=== PATIENT | female | born 1945 | race Caucasian/White ===

== ENCOUNTER → 2024-10-04 | Outpatient (CLI) | payer MEDICARE, SELFPAY ==
[2024-10-04 16:43] LABS: Basophils # (Auto) 0.1 Thou/mm3 (0.0-0.2); Basophils % (Auto) 1 % (0-2.5); Eosinophils # (Auto) 0.2 Thou/mm3 (0.0-0.5); Eosinophils % (Auto) 2 % (0-10); Hematocrit 38.9 % (36.0-46.0); Hemoglobin 12.9 g/dL (12.0-16.0); Immature Granulocytes % (Auto) 0 % (0-0); Immature Granulocytes Auto 0.02 Thou/mm3 (0.00-0.00); Lymphocytes # (Auto) 3.1 Thou/mm3 (1.0-4.8); Lymphocytes % (Auto) 34 % (10-50); Mean Corpuscular HGB Conc 33.2 g/dl (31.0-37.0); Mean Corpuscular Hemoglobin 30.2 pg (25.0-35.0); Mean Corpuscular Volume 91 fL (80-100); Monocytes # (Auto) 0.6 Thou/mm3 (0.0-0.8); Monocytes % (Auto) 7 % (0-12); Neutrophils # (Auto) 5.1 Thou/mm3 (1.8-7.7); Neutrophils % (Auto) 56 % (37-80); Nucleated Red Blood Cell % 0 /100 WBC (0); Platelet Count 290 Thou/mm3 (140-440); RDW Standard Deviation 44.4 fL (36.4-46.3); Red Blood Count 4.27 Miln/mm3 (4.00-5.20)
[2024-10-04 16:58] LABS: Alanine Aminotransferase 17 U/L (10-49); Albumin, Serum 4.5 gm/dL (3.4-4.8); Albumin/Globulin Ratio 1.7 (1.2-2.2); Alkaline Phosphatase 69 U/L (46-116); Anion Gap 6 (7-16); Aspartate Amino Transferase 18 U/L (0-34); BUN/Creatinine Ratio 27 Ratio (12-20); Bilirubin,Total 0.3 mg/dL (0.3-1.2); Blood Urea Nitrogen 24 mg/dL (9-23); Carbon Dioxide 26.8 mMol/L (20.0-31.0); Chloride 104 mMol/L (98-107); Creatinine (Component) 0.9 mg/dL (0.6-1.3); Globulin 2.6 gm/dL (2.3-3.5); Glucose 88 mg/dL (74-106); Osmolality,Calculated 276 (275-295); Potassium 4.2 mMol/L (3.4-5.1); Sodium 137 mMol/L (136-145); Total Protein 7.1 gm/dL (5.7-8.2); eGFR > 60 See Note
[2024-10-04 17:00] LABS: Carcinoembryonic Antigen 0.5 ng/mL (0.0-5.0)
== END | disposition home or self-care (01) ==
LOC: SCTO 15:07
PROVIDERS: PCP Family Medicine; Referring Provider Internal Medicine Hematology & Oncology; Visit Provider Internal Medicine Hematology & Oncology
DX: C50.412 Malignant neoplasm of upper-outer quadrant of left female breast (principal)
CPT/HCPCS: 36415; 80053; 82378; 85025

== ENCOUNTER 2024-10-06 11:16 | Outpatient (RCR) | payer MEDICARE, SELFPAY ==
--- NOTE | 2024-10-08 18:43 | CTCFLWUP_ITS ---
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 Status post left pa rtial mastectomy and sentinel lymph node biopsy (04/20/2020). Status post radiation therapy to the left breast. Benign thyroid nodule (07/01/2022) REASON FOR TODAY?S VISIT: This is office follow-up visit. Ms. Masterson is here at [facility] to review her recent ultrasound of the thyroid results. She recently fell and injured her left ankle. She is ambulating well with some pain in the ankle. O ther than that she seems to be doing well. Denies any cough, chest pain, abdominal pain or leg cramp s. HISTORY OF PRESENT ILLNESS: Isabela Masterson is a 78-year-old ENG speaking female without an y significant past medical history was recently diagnosed with ductal carcinoma in situ of the left b reast as described below. 11/18/2018: Bone density test? 03/31/2018: Left breast stereotactic core biopsy? 10/11/2019: Bilateral digital screening mammograms? 11/29/2019: Left breast unilateral diagnostic mammogram? 03/22/2020: Stereotactic vacuum assisted left breast biopsy with clip placement? 04/20/2020: Left breast partial mastectomy as well as sentinel lymph node biopsy? 05/30/2020?07/10/2020: Patient received 6000 cGy radiation therapy to the left breast. 06/15/2021: Bone density test? 07/01/2022: Ultrasound-guided biopsy of the right thyroid nodule? 11/14/2022: CT scan of the chest without IV contrast 06/24/2023: CT scan of the chest without contrast 08/05/2023: Thyroid ultrasound 12/17/2023: Bone density test 01/28/2024: Thyroid ultrasound 05/26/2024: Ultrasound of the thyroid gland 10/06/2024 Thyroid nodules- multiple nodules . recommended biopsy PAST MEDICAL HISTORY: Denies PAST SURGICAL HISTORY: Sinus surgery and chin implant - 1991 Left breast lumpectomy - 2013 Left breat partial mastectomy with sentinel node biopsy 04/20/2020 MEDICATIONS: 1. biotin - 1,000 mcg 2 tab Daily 2. Calcium 600 with Vitamin D3 - 600 mg-12.5 mcg (500 unit) 2 Capsule Daily 3. echinacea - 400 mg 1 Capsule Daily 4. Excedrin Migraine - 250-250-65 mg 1 tab As directed 5. letrozole - 2.5 mg 1 tab Daily 6. magnesium oxide - 400 mg magnesium 1 tab Daily 7. melatonin - 3 mg 1 tab Every day before sleep 8. multivitamin - 1 tab Daily 9. turmeric - 400 mg 1 Capsule Daily 10. zinc - 1 tab Daily?Palabra Meds? Medications Last Reconciled by Tayler Chaudhry RN on 07/07/2024 ALLERGIES: Sulfa (Sulfonamide Antibiotics); pantoprazole REVIEW OF SYSTEMS:?Clone ROS? Neurological: No headache, seizures or blurring of vision. Gastrointestinal: No nausea, vomiting, diarrhea or constipation. Cardiovascular: No palpitations or angina pains. Respiratory: No cough, chest pain or shortness of breath. PHYSICAL EXAMINATION:?ClonePE? VITAL SIGNS: Temperature?100, B/P?129/70 Weight?172?lbs PAIN: 6 - Severe pain A and O times 4 S1 s2 Bilateral clear to auscultation No abdominal mass Moves all extermities.. ASSESSMENT and Plan : 1. ER positive, OK positive ductal carcinoma in situ of the left breast. Status post left partial ma stectomy along with sentinel lymph node biopsy. S/p adjuvant radiation therapy Tolerating letrozole very well with intermittent night sweats. 2. Osteopenia -bone density test showed decreased mineralization of the hips as documented above. Previous bone density test done in May 2021 showed osteopenia. Citracal 1 tablet p.o. twice daily. The patient does not want to take Fosamax The patient decided not to take Prolia.. 3. The ultrasound of the thyroid gland done on 05/26/2024 showed multiple nodules as documented above. The radiologist is recommending fine-needle aspiration of the large vascular midpole right thyroid nodule measuring 3.2 cm.. 4. Ultrasound-guided biopsy of the right thyroid nodule showed benign tissue. 1. I have reviewed the ultrasound results with the patient. She does not want to get biopsy done as recommended by the radiologist. Referrel to edge inker heels Electronically Signed by: {Object.Sanct_ID*PnP.NameFL@M}, {Object.Sanct_ID*PnP.Suffix@U} D: {Object.Sanct_Date} T: {Object.Sanct_Time} CC: Osvaldo?Kamila,? PCP: Tre Zhang Referring: Tre Zhang This document was completed utilizing speech recognition software. Grammatical errors, random word in sertions, pronoun errors, and incomplete sentences are an occasional consequence of this system due t o software limitations, ambient noise, and hardware issues. Any formal questions or concerns about th e content, text or information contained within the body of this dictation should be directly address ed to the provider for clarification.
== END 2024-10-15 23:59 | disposition home or self-care (01) ==
LOC: SCTC 11:16
PROVIDERS: PCP Family Medicine; Referring Provider Family Medicine; Visit Provider Internal Medicine Hematology & Oncology
DX: D05.12 Intraductal carcinoma in situ of left breast (principal); Z17.0 Estrogen receptor positive status [ER+]; Z17.21 Progesterone receptor positive status; Z79.811 Long term (current) use of aromatase inhibitors; Z90.12 Acquired absence of left breast and nipple; Z92.3 Personal history of irradiation; M85.80 Other specified disorders of bone density and structure, unspecified site
CPT/HCPCS: 99212; G0463

== ENCOUNTER → 2024-10-06 | Outpatient (CLI) | payer MEDICARE, SELFPAY ==
--- NOTE | 2024-10-06 10:00 | XR_ITS ---
Examination: Thyroid sonography complete TECHNIQUE: Multiple high resolution grayscale sonographic images thyroid lobes are carful analysis Exam date and time: October 06, 2024 0958 hours Comparison May 26, 2024 INDICATIONS: Multiple thyroid nodules on ultrasound May 26, 2024 FINDINGS: Right thyroid 5.6 x 2.9 x 3.1 cm Upper pole nodule 12 x 9 x 13 mm Midpole vascular nodule 2.7 x 1.5 x 2.4 cm Lower pole nodule 1.1 x 0.7 x 1.0 cm Left thyroid 6.6 x 3.2 x 2.7 cm Complex cystic mass upper pole 9 x 5 x 8 mm Midpole nodule 16 x 9 x 13 mm Lower pole vascular nodule 22 x 23 x 24 mm IMPRESSION: Multiple bilateral thyroid nodules Recommend ultrasound-guided fine-needle aspiration of mid pole right thyroid nodule 27 x 24 mm and lower pole left thyroid nodule 23 x 24 mm
== END | disposition home or self-care (01) ==
LOC: CDIM 09:36
PROVIDERS: PCP Family Medicine; Referring Provider Internal Medicine Hematology & Oncology; Visit Provider Internal Medicine Hematology & Oncology
DX: E04.2 Nontoxic multinodular goiter (principal); C50.412 Malignant neoplasm of upper-outer quadrant of left female breast
CPT/HCPCS: 76536

== ENCOUNTER → 2024-12-28 | Outpatient (CLI) | payer MEDICARE, SELFPAY ==
--- NOTE | 2024-12-28 09:45 | XR_ITS ---
Examination: Diagnostic digital mammography, bilateral Computer aided detection 3-D breast Tomosynthesis, bilateral Date and time of exam: December 28, 2024 0924 hours Compared to mammograms dating to February 13, 2015 INDICATIONS: Personal history left breast cancer Technique: Nonmagnified MLO, CC views of the breasts to been obtained, reconstructed from 3-D Tomosynthesis images. R2 computer aided detection program utilized for evaluation of suspicious masses and/or abnormal calcifications. 3-D Tomosynthesis images obtained. Findings: The breasts are heterogeneously dense, which may obscure small masses Stable architectural distortion outer left breast with skin thickening The right breast architecture is nodular Impression: BI-RADS Category 0: Incomplete: Need additional imaging evaluation Stable scar formation left breast Right breast architecture is nodular, recommend bilateral baseline breast sonography follow-up.
== END | disposition home or self-care (01) ==
LOC: CDIM 09:07
PROVIDERS: Referring Provider Internal Medicine Hematology & Oncology; Visit Provider Internal Medicine Hematology & Oncology
DX: N64.89 Other specified disorders of breast (principal); C50.412 Malignant neoplasm of upper-outer quadrant of left female breast
CPT/HCPCS: 77062; 77066; G0279

== ENCOUNTER → 2025-01-18 | Outpatient (CLI) | payer MEDICARE, SELFPAY ==
--- NOTE | 2025-01-18 10:30 | XR_ITS ---
Examination: Breast ultrasound complete, bilateral Date and time of exam: January 18, 2025 1032 hours INDICATIONS: Mammogram December 28, 2024 nodular breast architecture, history left breast lumpectomy 2019 Technique: Real-time grayscale ultrasonographic imaging bilateral breasts, including all 4 quadrants as well as nipple retroareolar and axillary regions. Findings: Sonographic images right and left breast demonstrated no cystic or solid masses IMPRESSION: BI-RADS category 1: Negative study
== END | disposition home or self-care (01) ==
LOC: CDIM 10:17
PROVIDERS: PCP Family Medicine; Referring Provider Internal Medicine Hematology & Oncology; Visit Provider Internal Medicine Hematology & Oncology
DX: C50.412 Malignant neoplasm of upper-outer quadrant of left female breast (principal)
CPT/HCPCS: 76641

== ENCOUNTER → 2025-03-29 | Outpatient (CLI) | payer MEDICARE, SELFPAY ==
[2025-03-29 11:59] LABS: Basophils # (Auto) 0.1 Thou/mm3 (0.0-0.2); Basophils % (Auto) 1 % (0-2.5); Eosinophils # (Auto) 0.2 Thou/mm3 (0.0-0.5); Eosinophils % (Auto) 2 % (0-10); Hematocrit 38.7 % (36.0-46.0); Hemoglobin 12.5 g/dL (12.0-16.0); Immature Granulocytes % (Auto) 0 % (0-0); Immature Granulocytes Auto 0.02 Thou/mm3 (0.00-0.00); Lymphocytes # (Auto) 2.1 Thou/mm3 (1.0-4.8); Lymphocytes % (Auto) 26 % (10-50); Mean Corpuscular HGB Conc 32.3 g/dl (31.0-37.0); Mean Corpuscular Hemoglobin 30.2 pg (25.0-35.0); Mean Corpuscular Volume 94 fL (80-100); Monocytes # (Auto) 0.5 Thou/mm3 (0.0-0.8); Monocytes % (Auto) 7 % (0-12); Neutrophils # (Auto) 5.1 Thou/mm3 (1.8-7.7); Neutrophils % (Auto) 64 % (37-80); Nucleated Red Blood Cell % 0 /100 WBC (0); Platelet Count 268 Thou/mm3 (140-440); RDW Standard Deviation 47.3 fL (36.4-46.3); Red Blood Count 4.14 Miln/mm3 (4.00-5.20)
[2025-03-29 12:09] LABS: Glucose Estimated Average 114 mg/dL (80-131); Hemoglobin A1C 5.6 % Hgb (4.8-6.0)
[2025-03-29 12:23] LABS: T4 (Thyroxine) 7.4 mcg/dL (4.5-10.9)
[2025-03-29 12:24] LABS: Carcinoembryonic Antigen 0.6 ng/mL (0.0-5.0)
[2025-03-29 12:25] LABS: Alanine Aminotransferase 12 U/L (10-49); Albumin, Serum 4.2 gm/dL (3.4-4.8); Albumin/Globulin Ratio 1.6 (1.2-2.2); Alkaline Phosphatase 64 U/L (46-116); Anion Gap 8 (7-16); Aspartate Amino Transferase 14 U/L (0-34); BUN/Creatinine Ratio 20 Ratio (12-20); Bilirubin,Total 0.4 mg/dL (0.3-1.2); Blood Urea Nitrogen 18 mg/dL (9-23); Calcium 9.2 mg/dL (8.3-10.6); Calcium (Corrected) 9.2 mg/dL (8.5-10.1); Carbon Dioxide 28.8 mMol/L (20.0-31.0); Cardiac Risk Estimate 4.1 RATIO (3.7-5.6); Chloride 105 mMol/L (98-107); Cholesterol 182 mg/dL (132-200); Creatinine (Component) 0.9 mg/dL (0.6-1.3); Free T4 (Free Thyroxine) 1.07 ng/dL (0.89-1.76); Globulin 2.7 gm/dL (2.3-3.5); Glucose 95 mg/dL (74-106); HDL Cholesterol 44 mg/dL (40-60); LDL Cholesterol,Calculated 113 mg/dL (0-130); Osmolality,Calculated 285 (275-295); Potassium 4.3 mMol/L (3.4-5.1); Sodium 142 mMol/L (136-145); Thyroid Stimulating Hormone 0.44 uIU/mL (0.55-4.78); Total Protein 6.9 gm/dL (5.7-8.2); Triglycerides 125 mg/dL (30-150); eGFR > 60 See Note
== END | disposition home or self-care (01) ==
LOC: SCTO 11:17
PROVIDERS: PCP Nurse Practitioner Family; Referring Provider Internal Medicine Hematology & Oncology; Visit Provider Internal Medicine Hematology & Oncology
DX: C50.412 Malignant neoplasm of upper-outer quadrant of left female breast (principal); E04.1 Nontoxic single thyroid nodule; R53.83 Other fatigue; Z82.49 Family history of ischemic heart disease and other diseases of the circulatory system
CPT/HCPCS: 36415; 80053; 80061; 82378; 83036; 84436; 84439; 84443; 85025

== ENCOUNTER 2025-04-04 14:35 | Outpatient (RCR) | payer MEDICARE, SELFPAY ==
--- NOTE | 2025-04-12 00:31 | CTCFLWUP_ITS ---
Patient: ISABELA MASTERSON : 1945 Page 8 of 8 FOLLOW UP NOTE DATE OF SERVICE: 04/05/2025 NAME: ISABELA MASTERSON ACCOUNT: [id number] : 1945 AGE: 79 INTERVAL HISTORY: Subjective: Chief Complaint Follow-up for stage 0 cancer treatment History of Present Illness Geremias Mar, a 79-year-old female with a history of stage 0 breast cancer in 2019, presents for follow-up. She reports being generally active but has recently experienced some limitations due to a torn tendon in her instep, which has slowed her down to walking. The patient is currently in her fourth year of hormone blocking therapy for breast cancer treatment. She mentions experiencing significant hair loss while on the hormone blockers, though it has since grown back very fine. She denies taking any medications at present. Isabela reports feeling cold in the examination room, which may be related to a potential thyroid issue that was recently discovered through blood tests. She states she was supposed to receive paperwork to see a thyroid specialist but never received it and has not yet consulted with one. The patient confirms adherence to her cancer treatment regimen, approaching the five-year giselle of hormone blocking therapy. She also mentions having completed a bone density scan in 2020 and a breast ultrasound in January, which she reports as negative. Medications and Supplements - Hormone blockers - Discontinued after 4 years of use - Caused hair loss - Calcium - Not taking - Vitamin D - Not taking Review of Systems General: Positive for feeling cold. HEENT: Positive for fine hair. Musculoskeletal: Positive for torn tendon in instep, slowed walking. Objective: Physical Examination General: Patient appears to be in good condition for stated age of 79. HEENT: Hair is present, described as very fine. Patient reports having thick hair previously. Laboratory, Imaging, and Diagnostic Test Results - Breast ultrasound (January 2025): Negative study. Sonographic images of the right and left breast were negative. 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 Status post left partial mastectomy and sentinel lymph node biopsy (04/20/2020). Status post radiation therapy to the left breast. Benign thyroid nodule (07/01/2022) REASON FOR TODAY?S VISIT: This is office follow-up visit. Ms. Masterson is here at [facility] to review her recent ultrasound of the thyroid results. She recently fell and injured her left ankle. She is ambulating well with some pain in the ankle. Other than that she seems to be doing well. Denies any cough, chest pain, abdominal pain or leg cramps. Malignant neoplasm of upper-outer quadrant of left female breast [ICD10] C50.412 DATE OF DIAGNOSIS: STAGE/TNM: TREATMENT HISTORY: Care?Plan Start?Date Cycle Day Intent PROLia?60mg?every?6?months 09/10/2022 1 180 Palliative HISTORY OF PRESENT ILLNESS: Isabela Masterson is a 79-year-old ENG speaking female without any significant past medical history was recently diagnosed with ductal carcinoma in situ of the left breast as described below. 11/18/2018: Bone density test? 03/31/2018: Left breast stereotactic core biopsy? 10/11/2019: Bilateral digital screening mammograms? 11/29/2019: Left breast unilateral diagnostic mammogram? 03/22/2020: Stereotactic vacuum assisted left breast biopsy with clip placement? 04/20/2020: Left breast partial mastectomy as well as sentinel lymph node biopsy? 05/30/2020?07/10/2020: Patient received 6000 cGy radiation therapy to the left breast. 06/15/2021: Bone density test? 07/01/2022: Ultrasound-guided biopsy of the right thyroid nodule? 11/14/2022: CT scan of the chest without IV contrast 06/24/2023: CT scan of the chest without contrast 08/05/2023: Thyroid ultrasound 12/17/2023: Bone density test 01/28/2024: Thyroid ultrasound 05/26/2024: Ultrasound of the thyroid gland 10/06/2024 Thyroid nodules- multiple nodules . 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 biotin - 1,000 mcg 2 tab Daily 2. Calcium 600 with Vitamin D3 - 600 mg-12.5 mcg (500 unit) 2 Capsule Daily 3. echinacea - 400 mg 1 Capsule Daily 4. Excedrin Migraine - 250-250-65 mg 1 tab As directed 5. magnesium oxide - 400 mg magnesium 1 tab Daily 6. melatonin - 3 mg 1 tab Every day before sleep 7. multivitamin - 1 tab Daily 8. turmeric - 400 mg 1 Capsule Daily 9. zinc - 1 tab Daily Medications Last Reconciled by Clementina Gagnon MA on 04/05/2025 ALLERGIES: Sulfa (Sulfonamide Antibiotics); pantoprazole REVIEW OF SYSTEMS: A complete 14-point review of systems was performed and is negative except as noted in interval history. PHYSICAL EXAMINATION: VITAL SIGNS: Temperature?98.2, B/P?147/72, Oxygen?Saturation?97% PAIN: 0 - No pain ECOG Performance Status: 1 - Symptomatic; ambulatory; restricted in strenuous activity GENERAL APPEARANCE: Appears well, in no apparent distress, appropriately interactive. HEENT: Normocephalic, no temporal wasting, normal conjunctiva, no scleral icterus, normal hearing, lips without lesions, neck normal range of motion. CARDIOVASCULAR: Not assessed. PULMONARY: Normal respiratory effort, no respiratory distress or use of accessory muscles, speaking in full sentences, no tachypnea. EXTREMITIES: No pedal edema or cyanosis. SKIN: Normal skin appearance. NEUROLOGIC: Alert and oriented x4. PSHYCHIATRIC: Appropriate affect, mood normal, behavior normal, intact thought and speech. LABORATORY DATA: I have personally reviewed and interpreted each of the patient?s relevant lab tests, abnormal findings are below: Date 10/04/24 03/29/25 ??WHITE?BLOOD?COUNT?(Thou/mm3) 9.0 8.0 ??RED?BLOOD?COUNT?(Miln/mm3) 4.27 4.14 ??HEMOGLOBIN?(gm/dl) 12.9 12.5 ??HEMATOCRIT?(%) 38.9 38.7 ??PLATELET?COUNT?(Thou/mm3) 290 268 ??NEUTROPHILS?%,?AUTO?(%) 56 64 ??LYMPH?%,?AUTO?(%) 34 26 ??NEUTROPHILS,?AUTO?(Thou/mm3) 5.1 5.1 ??GLUCOSE,RANDOM?(mg/dL) ? 95 ??BLOOD?UREA?NITROGEN?(mg/dL) ? 18 ??CREATININE?(mg/dL) ? 0.90 ??SODIUM?(mmol/L) ? 142 ??POTASSIUM?(mmol/L) ? 4.3 ??CHLORIDE?(mmol/L) ? 105 ??CrCl?(CandG)?(ml/min) ? 62.43 ??AST/SGOT?(Unit/L) ? 14 ??ALT/SGPT?(Unit/L) ? 12 ??ALKALINE?PHOSPHATASE?(Unit/L) ? 64 ??BILIRUBIN,?TOTAL?(mg/dL) ? 0.4 ??PROTEIN?TOTAL?(gm/dl) ? 6.9 ??ALBUMIN,?SERUM?(gm/dl) ? 4.2 ??GLOBULIN?(gm/dl) ? 2.7 ??ALBUMIN/GLOBULIN?RATIO ? 1.6 ??CALCIUM,?SERUM?(mg/dL) ? 9.2 ??CALCIUM?SERUM?(CORRECTED)?(mg/dL) ? 9.2 ??CEA?(O*)?(ng/ml) ? 0.6 ASSESSMENT/PLAN: Assessment and Plan: Geremias Mar, a 79-year-old female with a history of stage 0 breast cancer in 2019, presents for follow-up of hormone blocking therapy and management of thyroid issues. Breast Cancer, Stage 0 (2019) Assessment: Patient is nearing completion of 5 years of hormone blocking therapy for stage 0 breast cancer diagnosed in 2019. She has completed approximately 4 years of treatment. Recent breast imaging studies, including sonographic images of both breasts performed in January, were negative. Next mammogram is scheduled for December of the following year. Plan: - Continue hormone blocking therapy until 5-year giselle is reached - Mammogram scheduled for December next year - Discontinue hormone blocking therapy after completion of 5 years Thyroid Dysfunction Assessment: Recent blood tests suggest thyroid dysfunction, likely hyperthyroidism based on clinical presentation including body habitus and eye findings. A referral to an cardiac technologist was previously ordered but not received by the patient. Plan: - Referral to cardiac technologist Dr. Maribell Tellez for thyroid evaluation - Patient advised to contact the referred specialist's office directly, as no authorization is required - Follow up on referral process with learning and development officer due to patient not receiving referral information Bone Health Assessment: Last bone density scan was performed in 2020 with good results. Patient is due for a repeat scan as these are typically performed every 2 years. Plan: - Schedule bone density scan Foot Injury Assessment: Patient reports tearing a tendon in the instep of one foot, which has limited her to walking and slowed her down. Plan: - Continue monitoring foot injury - Encourage activity as tolerated ORDERS: Order # Description [id number] Comprehensive Metabolic Panel - 12 + CBC with Auto Diff + MD Follow Up 6 Month [id number] Thyroid Stimulating Hormone + Assay Triiodothyronine (T3) RETURN TO CLINIC: BILLING AND COMPLIANCE: I reviewed external records from providers outside my specialty as summarized above. I spent a total of 50 minutes on this patient?s care on the day of their visit excluding time spent related to any billed procedures. This time includes time spent with the patient as well as time spent documenting in the medical record, reviewing patients records and tests, obtaining history, placing orders, communicating with other healthcare professionals, counseling the patient, family or caregiver, and/or care coordination for the diagnoses above. Electronically Signed by: {Object.Sanct_ID*PnP.NameFL@M}, {Object.Sanct_ID*PnP.Suffix@U} D: {Object.Sanct_Date} T: {Object.Sanct_Time} CC: Osvaldo?Kamila,? PCP: Desean Cronin Referring: Desean Cronin This document was completed utilizing speech recognition software. Grammatical errors, random word insertions, pronoun errors, and incomplete sentences are an occasional consequence of this system due to software limitations, ambient noise, and hardware issues. Any formal questions or concerns about the content, text or information contained within the body of this dictation should be directly addressed to the provider for clarification.
== END 2025-04-15 23:59 | disposition home or self-care (01) ==
LOC: SCTC 14:35
PROVIDERS: PCP Nurse Practitioner Family; Referring Provider Nurse Practitioner Family; Visit Provider Internal Medicine Hematology & Oncology
DX: C50.412 Malignant neoplasm of upper-outer quadrant of left female breast (principal); E07.9 Disorder of thyroid, unspecified; S96.919D Strain of unspecified muscle and tendon at ankle and foot level, unspecified foot, subsequent encounter; X58.XXXD Exposure to other specified factors, subsequent encounter; Z17.0 Estrogen receptor positive status [ER+]; Z17.21 Progesterone receptor positive status; Z79.890 Hormone replacement therapy
CPT/HCPCS: 99212; G0463

== ENCOUNTER → 2025-04-12 | Outpatient (CLI) | payer MEDICARE, SELFPAY ==
[2025-04-12 11:54] LABS: Folate 16.48 ng/mL (>5.38); Follicle Stimulating Hormone 148.38 mIU/mL (See Note); Vitamin B12 322 pg/mL (211-911); Vitamin D 25 Hydroxy Total 36.9 ng/mL (7.3-40.2)
[2025-04-21 06:57] LABS: Albumin 4.1 g/dL (3.6-5.1); Homocysteine* 17.6 umol/L (< OR = 13.4); Methylmalonic Acid, GC/MS/MS* 737 nmol/L (69-390); Progesterone,LC/MS* <0.1 ng/mL; SHBG 30 nmol/L (14-73); Testosterone, Bioavailable 3.1 ng/dL (0.5-8.8); Testosterone, Free 1.7 pg/mL (0.3-5.0); Testosterone,Total 13 ng/dL (2-45); Thyroglobulin Antibodies* 1 IU/mL (< OR = 1); Thyroid Peroxidase Antibodies* 269 IU/mL (<9); Thyrotropin-Binding Inhib Ig* <1.00 IU/L (< OR = 2.00); Vitamin A (Retinol)* 52 mcg/dL (38-98)
[2025-05-01 07:09] LABS: Estradiol, Ultrasensitive* <4 pg/mL; Vitamin B1 (Thiamine)* 10 nmol/L (8-30)
== END | disposition home or self-care (01) ==
LOC: COPL 10:20
PROVIDERS: PCP Nurse Practitioner Family; Referring Provider Nurse Practitioner Family; Visit Provider Nurse Practitioner Family
DX: E56.9 Vitamin deficiency, unspecified (principal); R53.83 Other fatigue; E89.1 Postprocedural hypoinsulinemia; E05.00 Thyrotoxicosis with diffuse goiter without thyrotoxic crisis or storm
CPT/HCPCS: 36415; 82040; 82306; 82607; 82670; 82746; 83001; 83002; 83090; 83519; 83921; 84144; 84270; 84403; 84425; 84443; 84590; 86376; 86800

== ENCOUNTER → 2025-07-05 | Outpatient (CLI) | payer MEDICARE, SELFPAY ==
[2025-07-05 11:56] LABS: Basophils # (Auto) 0.1 Thou/mm3 (0.0-0.2); Basophils % (Auto) 1 % (0-2.5); Eosinophils # (Auto) 0.2 Thou/mm3 (0.0-0.5); Eosinophils % (Auto) 2 % (0-10); Hematocrit 41.6 % (36.0-46.0); Hemoglobin 13.2 g/dL (12.0-16.0); Immature Granulocytes Auto 0.02 Thou/mm3 (0.00-0.00); Lymphocytes # (Auto) 2.3 Thou/mm3 (1.0-4.8); Lymphocytes % (Auto) 29 % (10-50); Mean Corpuscular HGB Conc 31.7 g/dl (31.0-37.0); Mean Corpuscular Hemoglobin 29.5 pg (25.0-35.0); Mean Corpuscular Volume 93 fL (80-100); Monocytes # (Auto) 0.6 Thou/mm3 (0.0-0.8); Monocytes % (Auto) 7 % (0-12); Neutrophils # (Auto) 4.8 Thou/mm3 (1.8-7.7); Neutrophils % (Auto) 60 % (37-80); Nucleated Red Blood Cell # 0.00 Thou/mm3 (0.00-0.00); Nucleated Red Blood Cell % 0 /100 WBC (0); Platelet Count 338 Thou/mm3 (140-440); RDW Standard Deviation 46.6 fL (36.4-46.3); Red Blood Count 4.47 Miln/mm3 (4.00-5.20); White Blood Count 7.9 Thou/mm3 (3.6-11.0)
[2025-07-05 12:21] LABS: Vitamin D 25 Hydroxy Total 27.2 ng/mL (7.3-40.2)
[2025-07-05 12:26] LABS: Alanine Aminotransferase 22 U/L (10-49); Albumin, Serum 4.6 gm/dL (3.4-4.8); Albumin/Globulin Ratio 1.7 (1.2-2.2); Alkaline Phosphatase 62 U/L (46-116); Anion Gap 11 (7-16); Aspartate Amino Transferase 23 U/L (0-34); BUN/Creatinine Ratio 22 Ratio (12-20); Bilirubin,Total 0.5 mg/dL (0.3-1.2); Blood Urea Nitrogen 22 mg/dL (9-23); Calcium 10.2 mg/dL (8.3-10.6); Calcium (Corrected) 10.2 mg/dL (8.5-10.1); Carbon Dioxide 25.8 mMol/L (20.0-31.0); Cardiac Risk Estimate 3.9 RATIO (3.7-5.6); Chloride 105 mMol/L (98-107); Cholesterol 182 mg/dL (132-200); Creatinine (Component) 1.0 mg/dL (0.6-1.3); Free T3 3.1 pg/mL (2.3-4.2); Free T4 (Free Thyroxine) 1.13 ng/dL (0.89-1.76); Globulin 2.7 gm/dL (2.3-3.5); Glucose 97 mg/dL (74-106); HDL Cholesterol 47 mg/dL (40-60); LDL Cholesterol,Calculated 113 mg/dL (0-130); Osmolality,Calculated 286 (275-295); Potassium 4.2 mMol/L (3.4-5.1); Procalcitonin 0.04 ng/ml (0.0-0.49); Sodium 142 mMol/L (136-145); Thyroid Stimulating Hormone 0.45 uIU/mL (0.55-4.78); Total Protein 7.3 gm/dL (5.7-8.2); Triglycerides 111 mg/dL (30-150); eGFR 57 See Note
[2025-07-15 17:49] LABS: Thyroglobulin Antibodies 2 IU/mL (< OR = 1)
[2025-07-18 07:00] LABS: TSI, Thyroid Stimulating Ig* <89 % baseline (<140); Thyroglobulin 34.7 ng/mL; Thyroid Peroxidase Antibodies* 521 IU/mL (<9); Vitamin D,1,25 (OH)2,Total 45 pg/mL (18-72); Vitamin D2, 1,25 (OH)2 <8 pg/mL; Vitamin D3, 1,25 (OH)2 45 pg/mL
== END | disposition home or self-care (01) ==
LOC: COPL 10:03
PROVIDERS: PCP Nurse Practitioner Family; Referring Provider Internal Medicine Endocrinology, Diabetes & Metabolism; Visit Provider Internal Medicine Endocrinology, Diabetes & Metabolism
DX: E04.2 Nontoxic multinodular goiter (principal); R79.89 Other specified abnormal findings of blood chemistry
CPT/HCPCS: 36415; 80053; 80061; 82306; 82652; 84145; 84432; 84439; 84443; 84445; 84481; 85025; 86376; 86800

== ENCOUNTER → 2025-10-02 | Outpatient (CLI) | payer MEDICARE, SELFPAY ==
[2025-10-02 14:23] LABS: Basophils # (Auto) 0.1 Thou/mm3 (0.0-0.2); Basophils % (Auto) 1 % (0-2.5); Eosinophils # (Auto) 0.2 Thou/mm3 (0.0-0.5); Eosinophils % (Auto) 2 % (0-10); Hematocrit 41.0 % (36.0-46.0); Hemoglobin 12.9 g/dL (12.0-16.0); Immature Granulocytes Auto 0.02 Thou/mm3 (0.00-0.00); Lymphocytes # (Auto) 2.2 Thou/mm3 (1.0-4.8); Lymphocytes % (Auto) 27 % (10-50); Mean Corpuscular HGB Conc 31.5 g/dl (31.0-37.0); Mean Corpuscular Hemoglobin 29.3 pg (25.0-35.0); Mean Corpuscular Volume 93 fL (80-100); Monocytes # (Auto) 0.6 Thou/mm3 (0.0-0.8); Monocytes % (Auto) 7 % (0-12); Neutrophils # (Auto) 5.0 Thou/mm3 (1.8-7.7); Neutrophils % (Auto) 62 % (37-80); Nucleated Red Blood Cell # 0.00 Thou/mm3 (0.00-0.00); Nucleated Red Blood Cell % 0 /100 WBC (0); Platelet Count 352 Thou/mm3 (140-440); RDW Standard Deviation 46.5 fL (36.4-46.3); Red Blood Count 4.40 Miln/mm3 (4.00-5.20); White Blood Count 8.1 Thou/mm3 (3.6-11.0)
[2025-10-02 14:42] LABS: Alanine Aminotransferase 21 U/L (10-49); Albumin, Serum 4.5 gm/dL (3.4-4.8); Albumin/Globulin Ratio 1.6 (1.2-2.2); Alkaline Phosphatase 76 U/L (46-116); Anion Gap 11 (7-16); Aspartate Amino Transferase 23 U/L (0-34); BUN/Creatinine Ratio 19 Ratio (12-20); Bilirubin,Total 0.3 mg/dL (0.3-1.2); Blood Urea Nitrogen 17 mg/dL (9-23); Calcium 10.0 mg/dL (8.3-10.6); Calcium (Corrected) 10.0 mg/dL (8.5-10.1); Carbon Dioxide 27.0 mMol/L (20.0-31.0); Chloride 104 mMol/L (98-107); Creatinine (Component) 0.9 mg/dL (0.6-1.3); Globulin 2.9 gm/dL (2.3-3.5); Glucose 85 mg/dL (74-106); Osmolality,Calculated 283 (275-295); Potassium 4.3 mMol/L (3.4-5.1); Sodium 142 mMol/L (136-145); Thyroid Stimulating Hormone 0.37 uIU/mL (0.55-4.78); Total Protein 7.4 gm/dL (5.7-8.2); eGFR > 60 See Note
[2025-10-06 06:45] LABS: T3,Total* 84 ng/dL (76-181)
== END | disposition home or self-care (01) ==
LOC: COPL 11:47
PROVIDERS: PCP Family Medicine; Referring Provider Internal Medicine Hematology & Oncology; Visit Provider Internal Medicine Hematology & Oncology
DX: C50.412 Malignant neoplasm of upper-outer quadrant of left female breast (principal)
CPT/HCPCS: 36415; 80053; 84443; 84480; 85025

== ENCOUNTER 2025-10-04 14:54 | Outpatient (RCR) | payer MEDICARE, SELFPAY ==
--- NOTE | 2025-10-08 23:47 | CTCFLWUP_ITS ---
Patient: ISABELA MASTERSON : 1945 Page 2 of 2 FOLLOW UP NOTE DATE OF SERVICE: 10/04/2025 NAME: ISABELA MASTERSON ACCOUNT: [id number] : 1945 AGE: 79 INTERVAL HISTORY: Subjective: Chief Complaint Follow-up for stage 0 cancer treatment History of Present Illness Geremias Mar, a 79-year-old female with a history of stage 0 breast cancer in 2019, presents for follow-up. She reports being generally active but has recently experienced some limitations due to a torn tendon in her instep, which has slowed her down to walking. The patient is currently in her fourth year of hormone blocking therapy for breast cancer treatment. She mentions experiencing significant hair loss while on the hormone blockers, though it has since grown back very fine. She denies taking any medications at present. Isabela reports feeling cold in the examination room, which may be related to a potential thyroid issue that was recently discovered through blood tests. She states she was supposed to receive paperwork to see a thyroid specialist but never received it and has not yet consulted with one. The patient confirms adherence to her cancer treatment regimen, approaching the five-year giselle of hormone blocking therapy. She also mentions having completed a bone density scan in 2020 and a breast ultrasound in January, which she reports as negative. Medications and Supplements - Hormone blockers - Discontinued after 4 years of use - Caused hair loss - Calcium - Not taking - Vitamin D - Not taking Review of Systems General: Positive for feeling cold. HEENT: Positive for fine hair. Musculoskeletal: Positive for torn tendon in instep, slowed walking. Objective: Physical Examination General: Patient appears to be in good condition for stated age of 79. HEENT: Hair is present, described as very fine. Patient reports having thick hair previously. Laboratory, Imaging, and Diagnostic Test Results - Breast ultrasound (January 2025): Negative study. Sonographic images of the right and left breast were negative. 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 Status post left partial mastectomy and sentinel lymph node biopsy (04/20/2020). Status post radiation therapy to the left breast. Benign thyroid nodule (07/01/2022) REASON FOR TODAY?S VISIT: This is office follow-up visit. Ms. Masterson is here at [facility] to review her recent ultrasound of the thyroid results. She recently fell and injured her left ankle. She is ambulating well with some pain in the ankle. Other than that she seems to be doing well. Denies any cough, chest pain, abdominal pain or leg cramps. Malignant neoplasm of upper-outer quadrant of left female breast [ICD10] C50.412 DATE OF DIAGNOSIS: STAGE/TNM: TREATMENT HISTORY: Care?Plan Start?Date Cycle Day Intent PROLia?60mg?every?6?months 09/10/2022 1 180 Palliative HISTORY OF PRESENT ILLNESS: Isabela Masterson is a 79-year-old ENG speaking female without any significant past medical history was recently diagnosed with ductal carcinoma in situ of the left breast as described below. 11/18/2018: Bone density test? 03/31/2018: Left breast stereotactic core biopsy? 10/11/2019: Bilateral digital screening mammograms? 11/29/2019: Left breast unilateral diagnostic mammogram? 03/22/2020: Stereotactic vacuum assisted left breast biopsy with clip placement? 04/20/2020: Left breast partial mastectomy as well as sentinel lymph node biopsy? 05/30/2020?07/10/2020: Patient received 6000 cGy radiation therapy to the left breast. 06/15/2021: Bone density test? 07/01/2022: Ultrasound-guided biopsy of the right thyroid nodule? 11/14/2022: CT scan of the chest without IV contrast 06/24/2023: CT scan of the chest without contrast 08/05/2023: Thyroid ultrasound 12/17/2023: Bone density test 01/28/2024: Thyroid ultrasound 05/26/2024: Ultrasound of the thyroid gland 10/06/2024 Thyroid nodules- multiple nodules . recommended biopsy OTHER MEDICAL HISTORY/CONDITIONS: FAMILY HISTORY: SOCIAL HISTORY: [employer]DER HISTORY: MEDICATIONS: 1. biotin - 1,000 mcg 2 tab Daily 2. Calcium 600 with Vitamin D3 - 600 mg-12.5 mcg (500 unit) 2 Capsule Daily 3. echinacea - 400 mg 1 Capsule Daily 4. Excedrin Migraine - 250-250-65 mg 1 tab As directed 5. magnesium oxide - 400 mg magnesium 1 tab Daily 6. melatonin - 3 mg 1 tab Every day before sleep 7. multivitamin - 1 tab Daily 8. turmeric - 400 mg 1 Capsule Daily 9. zinc - 1 tab Daily Medications Last Reconciled by Halley Perez MD on 10/04/2025 ALLERGIES: Sulfa (Sulfonamide Antibiotics); pantoprazole REVIEW OF SYSTEMS: A complete 14-point review of systems was performed and is negative except as noted in interval history. PHYSICAL EXAMINATION: VITAL SIGNS: Temperature?99.1, B/P?148/80, Oxygen?Saturation?95% Weight?174?lbs PAIN: 0 - No pain ECOG Performance Status: 0 - Asymptomatic and fully active GENERAL APPEARANCE: Appears well, in no apparent distress, appropriately interactive. HEENT: Normocephalic, no temporal wasting, normal conjunctiva, no scleral icterus, normal hearing, lips without lesions, neck normal range of motion. CARDIOVASCULAR: Not assessed. PULMONARY: Normal respiratory effort, no respiratory distress or use of accessory muscles, speaking in full sentences, no tachypnea. EXTREMITIES: No pedal edema or cyanosis. SKIN: Normal skin appearance. NEUROLOGIC: Alert and oriented x4. PSHYCHIATRIC: Appropriate affect, mood normal, behavior normal, intact thought and speech. LABORATORY DATA: I have personally reviewed and interpreted each of the patient?s relevant lab tests, abnormal findings are below: Date 07/05/25 10/02/25 ??WHITE?BLOOD?COUNT?(Thou/mm3) 7.9 8.1 ??RED?BLOOD?COUNT?(Miln/mm3) 4.47 4.40 ??HEMOGLOBIN?(gm/dl) 13.2 12.9 ??HEMATOCRIT?(%) 41.6 41.0 ??PLATELET?COUNT?(Thou/mm3) 338 352 ??NEUTROPHILS?%,?AUTO?(%) 60 62 ??LYMPH?%,?AUTO?(%) 29 27 ??NEUTROPHILS,?AUTO?(Thou/mm3) 4.8 5.0 ??GLUCOSE,RANDOM?(mg/dL) 97 85 ??BLOOD?UREA?NITROGEN?(mg/dL) 22 17 ??CREATININE?(mg/dL) 1.00 0.90 ??SODIUM?(mmol/L) 142 142 ??POTASSIUM?(mmol/L) 4.2 4.3 ??CHLORIDE?(mmol/L) 105 104 ??CrCl?(CandG)?(ml/min) 56.18 62.43 ??AST/SGOT?(Unit/L) 23 23 ??ALT/SGPT?(Unit/L) 22 21 ??ALKALINE?PHOSPHATASE?(Unit/L) 62 76 ??BILIRUBIN,?TOTAL?(mg/dL) 0.5 0.3 ??PROTEIN?TOTAL?(gm/dl) 7.3 7.4 ??ALBUMIN,?SERUM?(gm/dl) 4.6 4.5 ??GLOBULIN?(gm/dl) 2.7 2.9 ??ALBUMIN/GLOBULIN?RATIO 1.7 1.6 ??CALCIUM,?SERUM?(mg/dL) 10.2 10.0 ??CALCIUM?SERUM?(CORRECTED)?(mg/dL) 10.2?H 10.0 ASSESSMENT/PLAN: Assessment and Plan: Geremias Mar, a 79-year-old female with a history of stage 0 breast cancer in 2019, presents for follow-up of hormone blocking therapy and management of thyroid issues. Breast Cancer, Stage 0 (2019) Assessment: Patient is nearing completion of 5 years of hormone blocking therapy for stage 0 breast cancer diagnosed in 2019. She has completed approximately 4 years of treatment. Recent breast imaging studies, including sonographic images of both breasts performed in January, were negative. Next mammogram is scheduled for December of the following year. Plan: - Continue hormone blocking therapy until 5-year giselle is reached - Mammogram scheduled for December next year - Discontinue hormone blocking therapy after completion of 5 years Thyroid Dysfunction Assessment: Recent blood tests suggest thyroid dysfunction, likely hyperthyroidism based on clinical presentation including body habitus and eye findings. A referral to an community artist was previously ordered but not received by the patient. Plan: - Referral to community artist Dr. Maribell Tellez for thyroid evaluation - Patient advised to contact the referred specialist's office directly, as no authorization is required - Follow up on referral process with commissary officer due to patient not receiving referral information Bone Health Assessment: Last bone density scan was performed in 2020 with good results. Patient is due for a repeat scan as these are typically performed every 2 years. Plan: - Schedule bone density scan Foot Injury Assessment: Patient reports tearing a tendon in the instep of one foot, which has limited her to walking and slowed her down. Plan: - Continue monitoring foot injury - Encourage activity as tolerated ORDERS: Order # Description [id number] Follow Up 2 Months [id number] 3D Mammogram Screening + Bilateral [id number] DXA L-Spine and Hip RETURN TO CLINIC: I reviewed the diagnosis, prognosis, and recommended treatment/procedure options with the patient (and/or their legal food service sales representatives), including the potential benefits, risks, side effects and alternative therapies. We also discussed the option of no treatment and the possibility of clinical trial participation, if applicable. All questions were addressed, and they demonstrated understanding. They provided informed consent to proceed with the proposed plan of care. BILLING AND COMPLIANCE: I reviewed external records from providers outside my specialty as summarized above. I spent a total of 50 minutes on this patient?s care on the day of their visit excluding time spent related to any billed procedures. This time includes time spent with the patient as well as time spent documenting in the medical record, reviewing patients records and tests, obtaining history, placing orders, communicating with other healthcare professionals, counseling the patient, family or caregiver, and/or care coordination for the diagnoses above. Electronically Signed by: Lonnie Wooten MD T: 11:45 PM CC: Osvaldo?Kamila? PCP: Ole Zhang Referring: Ole Zhang This document was completed utilizing speech recognition software. Grammatical errors, random word insertions, pronoun errors, and incomplete sentences are an occasional consequence of this system due to software limitations, ambient noise, and hardware issues. Any formal questions or concerns about the content, text or information contained within the body of this dictation should be directly addressed to the provider for clarification.
== END 2025-10-15 23:59 | disposition home or self-care (01) ==
LOC: SCTC 14:54
PROVIDERS: PCP Family Medicine; Referring Provider Family Medicine; Visit Provider Internal Medicine Hematology & Oncology
DX: Z08 Encounter for follow-up examination after completed treatment for malignant neoplasm (principal); Z85.3 Personal history of malignant neoplasm of breast; E07.9 Disorder of thyroid, unspecified
CPT/HCPCS: 99212; G0463